=== PATIENT | male | born 1975 | race Two or more races ===

== ENCOUNTER 2017-02-18 16:23 | Emergency (ER) | payer OTHER ==
[2017-02-18 16:44] VITALS: TEMP 98.8
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
[2017-02-18] MEDS ORDERED: OXYCODONE/APAP 5/325 TAB PO ONE (17:25)
[2017-02-18] MEDS ORDERED: CEPHALEXIN 500 MG CAP PO ONE (17:25)
[2017-02-18 18:37] VITALS: BP 132/82; PULSE 72; RESP 18; O2SAT 97
== END 2017-02-18 18:37 | disposition home or self-care (01) ==
DX: S62.632B Displaced fracture of distal phalanx of right middle finger, initial encounter for open fracture (principal); S52.602A Unspecified fracture of lower end of left ulna, initial encounter for closed fracture; F17.200 Nicotine dependence, unspecified, uncomplicated; S62.634B Displaced fracture of distal phalanx of right ring finger, initial encounter for open fracture; Y04.0XXA Assault by unarmed brawl or fight, initial encounter; Y92.69 Other specified industrial and construction area as the place of occurrence of the external cause; Y99.0 Civilian activity done for income or pay
CPT/HCPCS: A4565